=== PATIENT | female | born 1970 | race African-American/Black ===

== ENCOUNTER 2022-10-10 15:38 | Emergency (ER) | payer OTHER, SELFPAY ==
[2022-10-10 15:39] VITALS: BP 165/88; PULSE 83; RESP 15; TEMP 37; O2SAT 98; BMI 37.1
--- NOTE | 2022-10-10 16:06 | EDS_ITS ---
HPI History of Present Illness Chief Complaint: Laceration Detail of Chief Complaint: Laceration right index finger near the DIP joint dorsal surface Informant: patient and spouse/S.O. Onset/Context/Timing Onset: Days (Injury occurred on when she was cutting ham) Mechanism/Context: Incised Location of pain/injuries: Right hand (Previously described) Location: Dorsal surface right index finger proximity of the DIP joint Current Severity: Mild Maximum Severity: Moderate Worsened by: Nighttime Relieved by: Nothing Associated Symptoms Associated Symptoms: Positive for Amnesia; Negative for Parasthesias, Weakness, Loss of function, Inability to ambulate or Loss of consciousness Narrative Narrative: Patient presents with laceration dorsal surface right index finger in the proximity of the DIP joint. This occurred on while cutting him. She denies paresthesia, anesthesia medics. She is not diabetic. She is not on any immunosuppressive meds. She complains of swelling some minor discomfort which is worse at night. She denies drainage from the wound. Tetanus is unknown. She denies fever, chills night sweats. She denies pain in her right wrist, elbow or shoulder. She has not noted a red streak up her extremity. She has noted some redness to the right index finger with swelling. Tetanus Immunization: Unknown Prior similar symptoms: No Recent Illness/Hospitalization: No PFSH PFSH Medical History no medical history no medical history Home Medications amlodipine 2.5 mg tablet 2.5 mg PO DAILY 10/10/22 [History Last Taken Unknown] atorvastatin 40 mg tablet 20 mg PO DAILY 10/10/22 [History Last Taken Unknown] doxycycline monohydrate 100 mg capsule 100 mg PO BID #14 CAPSULES 10/10/22 [Rx Last Taken Unknown] Allergy/AdvReac Type Severity Reaction Status Date / Time No Known Allergies Allergy Verified 10/10/22 15:39 Social History (Updated 10/10/22 @ 16:[address] Edy White MD) household members: significant other Smoking Status: Never smoker substance use type: does not use ROS ROS ED Constitutional Constitutional ED: Denies chills, fever(s), subjective, sweats or weight loss Musculoskeletal Musculoskeletal: Denies arthralgias, back pain, myalgias or neck pain Integumentary Reports rash; Denies abscess or Abrasions Neurologic Neurologic: Denies paresthesias or weakness Hematologic/Lymphatic Hematologic/Lymphatic: Denies easy bleeding, easy bruising or lymphadenopathy EXAM Physical Exam Const Vital Signs: 10/10/22 15:39 Temperature 98.6 F Temperature Source Temporal Pulse Rate 83 Respiratory Rate 15 Blood Pressure 165/88 H Blood Pressure Mean 113 Pulse Ox 98 Oxygen Delivery Method Room Air Positive well nourished, well developed and obese General Appearance ED: well developed and NAD Nutritional Appearance: obese HEENT HEENT Narrative: Ears normal. Normocephalic. Nares patent. Mucosa moist. atraumatic Eyes PERRL and EOMs intact bilaterally General Eye ED: Yes other Other Details: Sclera is anicteric. Conjunctive is pink. Resp normal respiratory effort and clear to auscultation bilaterally Cardio regular rhythm, S1 normal heart sound, S2 normal heart sound and no murmurs Rate: regular rate Extremity Negative for normal to inspection Extremity Narrative: There is a laceration noted dorsal side right index finger over the DIP joint. The extensor Insite tendon is functionally intact. The flexor digitorum superficialis and flexor digitorum profundus are intact. Capillary fill is normal. Sensation is normal. Median, radial and ulnar function intact. Patient has evidence of cellulitis. There is slight fluctuance. Concerned that patient has a abscess. There is no lymphangitis. Is no epitrochlear axillary lymphadenopathy. Neuro oriented x3, CN's II-XII intact bilaterally, moves all extremities, no focal motor deficits and no sensory deficits noted Yariel Coma Scale: document GCS findings Spontaneous Obeys Commands Oriented 15 Psych mental status grossly normal and thought process normal Skin No no rashes or lesions noted, No no wounds and no jaundice Wounds: wounds noted other 1.7 cm dorsal surface of right index finger over the DIP joint. There is erythema and warmth over the middle phalanx. PROC Procedures Other Procedures Procedure(s): The digit was Nestabs 1% lidocaine by metacarpal nerve block. The wound was opened. There was approximately point 3.5 cc of purulent material. Blunt dissection was undertaken. Wound was irrigated with 100 mL normal saline. MDM MDM MDM Narrative Medical decision making narrative: Patient has an abscess and cellulitis of her right index finger. Wound was op en. Wound was cleansed and irrigated. Patient was treated with doxycycline. Discharge Plan Triage Chief Complaint: Laceration ED Provider: Edy White Dx/Rx/DC Orders Clinical Impression: Cellulitis and abscess of finger, unspecified, Infected finger laceration Instructions: ED Abscess Incision And Drainage, ED Cellulitis Prescriptions: New doxycycline monohydrate 100 mg capsule 100 mg PO BID Qty: 14 0RF No Action atorvastatin 40 mg tablet 20 mg PO DAILY Label Comments: TAKE 1/2 TABLET BY MOUTH ONCE DAILY amlodipine 2.5 mg tablet 2.5 mg PO DAILY Label Comments: TAKE 1 TABLET BY MOUTH EVERY DAY Primary Care Provider: Shalonda Li Referrals: Shalonda Li MD [Primary Care Provider] - 2 Days for wound check Activity Restrictions/Additional Instructions: Do not remove dressing for 24 hours. Keep wound clean and dry. Take anti biotics till gone. If you develop a red streak up your finger please return to the emergency department Disposition Disposition: Home, Self Care
[2022-10-10] MEDS: Diphth,Pertuss(Acell),Tet Vac 0.5 ML Vial IM (16:21)
[2022-10-10] MEDS: Lidocaine 1% (20 ml mdv) 20 ML Vial INFILT (16:24)
[2022-10-10] MEDS: Doxycycline 100 MG CAPSULE PO (16:57)
== END 2022-10-10 17:21 | disposition home or self-care (01) ==
PROVIDERS: Emergency Provider Emergency Medicine; PCP Internal Medicine; Visit Provider Emergency Medicine
DX: L03.011 Cellulitis of right finger (principal); S61.210A Laceration without foreign body of right index finger without damage to nail, initial encounter; L02.413 Cutaneous abscess of right upper limb; W26.8XXA Contact with other sharp object(s), not elsewhere classified, initial encounter; Z23 Encounter for immunization; E66.9 Obesity, unspecified
CPT/HCPCS: 10060; 90471; 90715; 99284